=== PATIENT | female | born 1950 | race Caucasian/White ===

== ENCOUNTER 2025-08-28 12:56 | Outpatient (CLI) | payer MEDICARE, SELFPAY ==
--- OUTSIDE RECORDS SUMMARY | 2024-04-19 16:30 | XMS_ITS ---
Author Organization [facility] [place] ([address]) Address [address] [place] [address] Care Team Providers Care Administrative Assistant Data Entry Name Role Phone Kobi Garcia Primary Care Provider UnavailTang Costello Unavailable [phone] ZZ-Migration, Provider Unavailable Unavailab le REASON FOR VISIT [facility] Conversion Encounter Medications Medication SIG (Take, Route, Frequency, Duration) Notes Start Date End Date Status TIMOLOL MALEATE (EQV-TIMOPTIC) MALEATE 0.5% *Please review for potential replacement for e-prescription and drug interaction check* Active ZyrTEC Allergy 10 MG 1 tab(s) orally once a day Not-Taking Cosopt 2.23%-0.68% (2%-0.5% BASE) 1 GTT IN EACH EYE 2 TIMES A DAY *Please review and pick correct strength-formulat ion from Technorati options. If intended option is not shown, discontinue and re-order from Quick Search* Active Montelukast Sodium 10 MG 1 tab(s) orally once a day; Duration: 30 days Active Montelukast Sodium 10 MG 1 tab(s) orally once a day; Duration: 90 days Active Famotidine 20 MG 1 tab(s) orally 30 mins prior to SCIT; Duration: 30 days Active Ezetimibe 10 MG Acti ve Calcium 500+D 500 MG-10 MCG 1 TAB(S) CHEWED 2 TIMES A DAY *Please review and pick correct strength-formulat ion from Technorati options. If intended option is not shown, discontinue and re-order from Quick Search* Active EpiPen 2-Giovanny 0.3 MG/0.3ML as directed intramuscularly once; Duration: 30 days Active Cetirizine HCl 10 MG 1 tab(s) orally once a day; Duration: 30 days Active Raloxifene HCl 60 MG Active Metoprolol Succinate ER 25 MG Active Latanoprost 0.005 % Active Encounters Encounter Location Date Provider Diagnosis [address] [address] 04/19/2024 Provider AVRIL-Migration Localized swelling, mass and lump, head R22.0 Assessments Encounter Date Diagnosis (ICD Code) Assessment Notes Treatment Notes Treatment Clinical Notes Section Notes 04/19/2024 Localized swelling, mass and lump, head (ICD-10 - R22.0) Plan Of Treatment Medication Medication Name Sig Start Date Stop Date Notes TIMOLOL MALEATE (EQV-TIMOPTIC) MALEATE 0.5% *Please review f or potential replacement for e-prescription and drug interaction check* Montelukast Sodium 10 MG 1 tab(s) orally once a day; Duration: 90 days Famotidine 20 MG 1 tab(s) orally 30 m ins prior to SCIT; Duration: 30 days Ezetimibe 10 MG Calcium 500+D 500 MG-10 MCG 1 TAB(S) CHEWED 2 TIMES A DAY *Please review and pick correct strength-formulation from Technorati options. If intended option is not shown, discontinue and re-order from Quick Search* EpiPen 2-Giovanny 0.3 MG/0.3ML as directed intramuscularly once; Duration: 30 days Cetirizine HCl 10 MG 1 tab(s) orally onc e a day; Duration: 30 days Raloxifene HCl 60 MG Metoprolol Succinate ER 25 MG Latanoprost 0.005 % Progress Notes * Tera MORENOOB:1950 (74 yo F)Acc No.[id number]:04/19/2024 Patient: Lavonne VU Provider: Dianna Grubbs :1950 A ge:73 Y S ex:Female Date:04/19/2024 Address:[address] [place], [place] [id number] Pcp:Kobi Garcia Subjective: * Chief Complaints: * 1 . [facility] Conversion Encounter. * Medical History: * Medications: T aking Cosopt 2.23%-0.68% (2%-0.5% BASE) SOLUTION 1 GTT IN EACH EYE 2 TIMES A DAY , Notes to Pharmacist: *Please review and pick correct strength-formulation from Medispan options. If intended option is not shown, discontinue and re-order from Quick Search*, Taking Montelukast Sodium 10 MG Tablet 1 tab(s) orally once a day , Not-Taking/PRN ZyrTEC Allergy 10 MG Tablet 1 tab(s) orally once a day Objective: * Vitals: Assessment: * Assessment: 1. L ocalized swelling, mass and lump, head - R22.0 (Primary) Plan: * Treatment: 2. O thers Continue TIMOLOL MALEATE (EQV-TIMOPTIC) SOLUTION, MALEATE 0.5%, Notes to Pharmacist: *Please review for potential replacement for e-prescription and drug interaction check*; C ontinue Raloxifene HCl Tablet, 60 MG; C ontinue Metoprolol Succinate ER Tablet Extended Release 24 Hour, 25 MG;?Continue Latanoprost Solution, 0.005 %; C ontinue Ezetimibe Tablet, 10 MG; C ontinue Calcium 500+D TABLET, CHEWABLE, 500 MG-10 MCG, 1 TAB(S), CHEWED, 2 TIMES A DAY, Notes to Pharmacist: *Please review and pick correct strength-formulation from Medispan options. If intended option is not shown, discontinue and re-order from Quick Search*. * Billing Information: * Visit Code: * Procedure Codes: * Electronic signature of Sera MACKENZIE-Migration on 08/28/2025 at 01:23 PM CDT Sign off status: Pending * Provider: Dianna tomlinson Migration Date: 0 04/19/2024 Generated for Simón smith/Arie/Joseph on: 01:23 PM CDT
--- OUTSIDE RECORDS SUMMARY | 2024-07-28 12:30 | XMS_ITS ---
Author Organization [facility] [place] ([address]) Address [address] [place] [address] Care Team Providers Care Engineer Station Mainline Name Role Phone Kobi Garcia Primary Care Provider Tang Greenwood [phone] REASON FOR VISIT [facility] follow-up Encounters Encounter Location Date Provider Diagnosis [facility] [place] [address] [place] [address] 07/28/2024 Tang Johnson Plan Of Treatment No Information Progress Notes * Tera MORENOOB:1950 (74 yo F)Acc No.[id number]:07/28/2024 Progress Notes Patient: Lavonne VU Provider: Sriram Johnson PA-C :1950 A ge:73 Y S ex:Female Date:07/28/2024 [address] [facility] Pcp:Kobi Garcia Subjective: * Chief Complaints: * 1 . ARC follow-up. * Medical History: Objective: * Vitals: Assessment: Plan: * Treatment: * Billing Information: * Visit Code: * Procedure Codes: * Electronic signature of Raad Johnson PA-C on 08/28/2025 at 01:23 PM CDT Sign off status: Pending * Provider: Sriram Johnson PA-C Date: 0 07/28/2024 Generated for Printi ng/Faxing/eTransmitting on: 1 01:23 PM CDT
--- OUTSIDE RECORDS SUMMARY | 2025-01-27 12:30 | XMS_ITS ---
Author Organization [facility] [place] ([address]) Address [address] [place] [address] Care Team Providers Care Senior Sales Operations Manager Name Role Phone Kobi Garcia Primary Care Provider Tang Greenwood [phone] REASON FOR VISIT [facility] follow-up Encounters Encounter Location Date Provider Diagnosis [facility] [place] [address] [place] [address] 01/27/2025 Tang Johnson Plan Of Treatment No Information Progress Notes * Tera MORENOOB:1950 (74 yo F)Acc No.[id number]:01/27/2025 Progress Notes Patient: Lavonne VU Provider: Sriram Johnson PA-C :1950 A ge:74 Y S ex:Female Date:01/27/2025 [address] [facility] Pcp:Kobi Garcia Subjective: * Chief Complaints: * 1 . ARC follow-up. * Medical History: Objective: * Vitals: Assessment: Plan: * Treatment: * Billing Information: * Visit Code: * Procedure Codes: * Electronic signature of Raad Johnson PA-C on 08/28/2025 at 01:22 PM CDT Sign off status: Pending * Provider: Sriram Johnson PA-C Date: 0 01/27/2025 Generated for Printi ng/Faxing/eTransmitting on: 1 01:22 PM CDT
--- OUTSIDE RECORDS SUMMARY | 2025-08-28 13:23 | XMS_ITS | Clinical Summary ---
Author Organization [facility] Address [address] [place] [place] [address] Care Team Providers Care Varnish Maker Name Role Phone Kobi Garcia MD Primary Care Provider Source Comments [facility],non-owned Affiliates and Associated Physician Practices is amultiple site organization consisting of ambulatory clinics and hospital sitesin [place], [place], [place] and [place]. This disclosure is being madepursuant to the Care Everywhere program and may not contain all information available regarding this patient. Last updated 18.[facility] Allergies No known active allergies Medications * Be aware that medications may not be up to date on this document. Alwaysverify current medications with the patient. raloxifene (EVISTA) 60 MG tablet Take 60 mg by mouth once daily Active METOPROLOL SUCCINATE ER PO Acti ve latanoprost (XALATAN) 0.005 % ophthalmic solution 1 drop at bedtime Active Active Problems No known active problems Immunizations Immunization Administration Dates Next Due INFLUENZA VACCINE, HIGH-DOSE , QUADR. (FLUZONE HIGH-DOSE QUADRIVALENT; 65Y+), 0.7 ML (HD-IIV4) 09/14/2020 Social History Tobacco Use Types Packs/Day Years Used Date Smoking Tobacco: Former Smokeless Tobacco: Never Comments No Sex and Gender Information Value Date Recorded Sex Assigned at Female 02/16/2024 10:06 AM CDT Legal Sex Female 9:12 AM CDT Gender Identity Female 02/16/2024 10:06 AM CDT Sexual Orientation Not on file Last Filed Vital Signs Vital Sign Reading Time Taken Comments Blood Pressure 122/76 04/05/2018 2:17 PM CDT Pulse 80 04/05/2018 2:17 PM CDT Temperature 36.5 C (97.7 F) 04/05/2018 2:17 PM CDT Respiratory Rate 16 04/05/2018 2:17 PM CDT Oxygen Saturation 98% 04/05/2018 2:17 PM CDT Inhaled Oxygen Concentration - - Weight 65.8 kg (145 lb) 04/05/2018 2:17 PM CDT Height 170.2 cm (5' 7) 04/05/2018 2:17 PM CDT Body Mass Index 22.71 04/05/2018 2:17 PM CDT Plan of Treatment Health Maintenance Due Date Last Done Comments BONE DENSITY TESTING 1950 COLOGUARD (AGES 45-75) - COLON CA SCREENING 1950 COLON MONITORING 1950 COLONOSCOPY - COLON CA SCREENING 1950 CT COLONOGRAPHY - COLON CA SCREENING 1950 Colorectal Cancer Screening 1950 FIT - COLON CA SCREENING 1950 FLEX SIG - COLON CA SCREENING 1950 LIPID TESTING 1950 MAMMOGRAM 1950 HEPATITIS C SCREENING 08/26/1970 DTAP/TDAP/TD VACCINES (1 - Tdap) 1971 PNEUMOCOCCAL VACCINE 50+ (1 of 1 - PCV) 2002 ZOSTER VACCINE (1 of 2) 2002 DEPRESSION SCREENING 11/05/2024 COVID-19 VACCINE (1 - season) 2025 INFLUENZA VACCINE (#1) 2025 , 09/14/2020, 09/29/2019, Additional history exists Respiratory Syncytial Virus (RSV) Vaccine Pt: or over 60 yrs (1 - 1-dose 75+ series) 2027 HEPATITIS B VACCINE Aged Out No longe r eligible based on patient's age to complete this topic HIB VACCINE Aged Out No longer eligi ble based on patient's age to complete this topic HPV VACCINE Aged Out No longer eligi ble based on patient's age to complete this topic MENINGOCOCCAL (Group B) VACCINE SHARED DECISION-MAKING Aged Out No longer eligible based on patient's age to complete this topic MENINGOCOCCAL GROUPS A/C/Y/W VACCINE Aged Out No longer eligible based on patient's age to complete this topic Insurance MEDICARE MEDICARE [facility] Care Teams Varnish Maker Relationship Specialty Start Date End Date Kobi Garcia MD [address] [facility] [address] [place] [address] PCP - General Internal Medicine 01/16/17
--- OUTSIDE RECORDS SUMMARY | 2025-08-28 13:23 | XMS_ITS | Clinical Summary ---
Author Organization [facility] Address [address] [place] [address] Care Team Providers Care Targeteer Name Role Phone Kobi Garcia MD Primary Care Provider Allergies No known active allergies Medications raloxifene (EVISTA) 60 mg tablet 06/06/20 21 Active metoprolol XL (TOPROL-XL) 25 mg extended release tablet 06/06/20 21 Active ezetimibe (ZETIA) 10 mg tablet Take 1 tablet (10 mg total) by mouth daily 12/08/19 22 Active amoxicillin 500 mg tablet/capsule Take by mouth 2 (two) times a day Active timolol (TIMOPTIC) 0.5 % ophthalmic solution INSTILL 1 DROP INTO BOTH EYES BID Active ergocalciferol (VITAMIN D) 50,000 unit capsule Take 1 capsule(s) every week by oral route for 30 days. Active cetirizine (ZyrTEC) 10 mg tabletIndicati ons:Chronic urticaria,Isabel oedema, initial encounter Take 2 tablets (20 mg total) by mouth daily 60 tablet 03/13/20 25 026 Active famotidine (PEPCID) 20 mg tabletIndicati ons:Chronic urticaria,Isabel oedema, initial encounter Take 1 tablet (20 mg total) by mouth 2 (two) times a day 60 tablet 03/13/20 25 026 Active EPINEPHrine 0.3 mg/0.3 mL auto-injection syringeIndicat ions:Anaphylax is Inject 0.3 mL (0.3 mg total) into the muscle as instructed as needed for anaphylaxis Call 911 after use. 2 each 1 03/20/20 25 026 Active dorzolamide-ti moloL (COSOPT) 22.3-6.8 mg/mL ophthalmic solutionIndica tions:Primary open angle glaucoma (POAG) of both eyes, mild stage INSTILL 1 DROP INTO EACH EYE TWICE DAILY 20 mL 3 04/15/20 25 Active latanoprost (XALATAN) 0.005 % ophthalmic solution INSTILL 1 DROP INTO EACH EYE NIGHTLY 7.5 mL 1 08/28/20 25 Active latanoprost (XALATAN) 0.005 % ophthalmic solution INSTILL 1 DROP INTO EACH EYE NIGHTLY 7.5 mL 3 11/11/19 25 025 Discontinued Active Problems Problem Noted Date Diagnosed Date Chronic urticaria 03/18/2025 Primary open angle glaucoma (POAG) of both eyes, mild stage 08/16/2021 Overview (03/29/2023): Family history: + mother Tmax: Unclear - thinks may have been 20 or 21 CCT: 540s Treatment course: Hx SLT OS 2019 @ [facility] Likely normotensive pattern Assessment & Plan (04/09/2025 1:42 PM CDT): IOP at goal No need for SLT at this time Follow 4-6 months with HVF 24-2 OU, SLT for IOP >18 Assessment & Plan (10/24/2024 1:57 PM GYN PHYSICIAN): IOP at goal No need for SLT at this time Follow 4-6 months with OCT, SLT for IOP >18 Assessment & Plan (07/24/2024 3:29 PM CDT): Intraocular pressure (IOP) sl elevated today Milian visual field (HVF) 10-2 with stable superior alt defect compared to 2022 Left eye (OS) 10-2 normal CPM Consider phaco-MIGS vs SLT if intraocular pressure (IOP) remains high Assessment & Plan (03/21/2024 2:36 PM CDT): Today HVF 24-2 stable with superior arcuate defect involving fixation, but with reduced foveal threshold IOP continues to be stable mid teens on Cosopt and latanoprost OU Will continue with close follow up and monitoring. IOP goal likely low teens but given stability of field and IOPs, can continue at this IOP for now in absence of progression. Return 4 months HVF 10-2 OU (alternating 24-2 and 10-2.) then dilate Assessment & Plan (12/06/2023 2:36 PM GYN PHYSICIAN): Most recent HVF 10-2 OD (08/02/2023) stable with superior arcuate defect involving fixation, but with reduced foveal threshold from prior OCT today with stable severe polar thinning OU. IOP continues to be stable around 15 on Cosopt and latanoprost OU Will continue with close follow up and monitoring. IOP goal likely low teens but given stability of field and IOPs, can continue at this IOP for now in absence of progression. Return 3 months HVF 24-2 OU (alternating 24-2 and 10-2.) Assessment & Plan (08/02/2023 3:17 PM CDT): IOP continues to be stable on Cosopt and latanoprost OU HVF 10-2 OD stable with superior arcuate defect involving fixation, but with reduced foveal threshold from prior Will continue with close follow up and monitoring. IOP goal likely low teens but given stability of field and IOPs, can continue at this IOP for now Return 3 months OCT RNFL (next dil 01/26) Assessment & Plan (03/29/2023 1:34 PM CDT): IOP improved after switching timolol to Cosopt Continue Cosopt and latanoprost OU Return: 4 months for repeat HVF 10-2 right eye (second baseline) Assessment & Plan (02/01/2023 2:12 PM CDT): POAG vs normal tension glaucoma (unclear Tmax- patient thinks may have been 20- 21, suspicious for NTG given derringer scotoma). Has previously been on cosopt but stopped- concern for allergy (hives). Has since been diagnosed with chronic urticaria and thinks cosopt was unrelated. Today IOP 16 and 16.5 Baseline HVF 10-2 OU today- derringer scotoma OD, nonspecific misses OS Goal IOP likely low teens given severity of cupping and center involving superior arcuate OD Discussed with patient SLT OD vs Cosopt, and she elects to restart cosopt Drops: Cosopt BID OU Latanoprost QHS OU RTC 6--8 weeks IOP check, if IOP remains mid teens could consider SLT OD Assessment & Plan (11/30/2022 2:14 PM GYN PHYSICIAN): Referred for evaluation of glaucoma OU - Glaucoma diagnosed ~15 years ago - Family hx: +Mother, diagnosed late and did not have significant treatment - TMax: unknown - Prior tx: self-reported intolerance to brimonidine; dorzolamide listed on chart as allergy but patient reports this was not the case Hx of SLT OS 2019 at [facility] Summary of today's findings: - visual acuity (VA): 20/20 OD, 20/20 OS - intraocular pressure (IOP): 16 / 16 (on timolol 2/2, latanoprost 11/05) - CCTs: 540s - Gonio: Gr 3 with some lens rise OU Assessment / Plan For now will continue chris 2/2 and xal 11/05. Will have patient come back for HVF 10-2 OU baseline. IOP OK for now at 16 OU. RTC 2 months IOP check/DFE OU and HVF 10-2 OU. Can consider possible phaco/MIGS versus SLT afterwards. Assessment & Plan (09/25/2022 8:43 PM GYN PHYSICIAN): Above goal 18/20 on latan (1,1), timolol (1,1) although did not take timolol this AM Discussed options including SLT vs observation with repeat HVF 24-2 OU in 2 mo. Pt elected to observe for now PLAN: - HVF 24-2 at next [facility] glaucoma visit - Consider Phaco/MIGS in future Assessment & Plan (08/29/2022 7:17 AM CDT): Had been stable on latan (1,1), timolol (1,1) previously OCT RNFL today overall stable OU HVF 24-2 GENESIS Fast: new paracentral scotoma OD, full OS Prior mendoza unreliable, so unclear if this is truly a new finding versus already existing IOP slightly above goal 17/18 today Discussed options includuing observation with repeat HVF 24-2 OU in 3 mo versus SLT OD with repeat field in 3 months. Pt elected to pursue SLT OD. Return: - Next available SLT OD - 3 months HVF 24-2 GENESIS FAST both eyes, IOP check - Consider Phaco/MIGS in future Assessment & Plan (02/17/2022 1:34 PM CDT): POAG both eyes with mild field loss, but advanced cupping Intolerance to brimonidine Family history + mother Target intraocular pressure (IOP) mid -teens OU Prior OCT with significant polar thinning Presents today for Milian visual field (HVF) 24-2 os due to poor reliability on prior study Milian visual field (HVF) 24-2: 02/17/22 Left eye - still with unreliable fixation loss but was looking straight ahead per rail technician, without FN/FP, full otherwise Plan: - since iop at goal, continue hcris 11/05, latan 11/05 - visual field testing appears to be full, although high FLs - RTC in 6 mo for OCT RNFL/GCC and Milian visual field (HVF) 24-24 GENESIS FAST - consider SLT both eyes (OU) if iop creeps up Assessment & Plan (11/25/2021 3:00 PM GYN PHYSICIAN): POAG both eyes with mild field loss, but advanced cupping intolerance to brimonidine Family history + mother Presents for intraocular pressure (IOP) check after stopping cosopt IOP today 10/17 on 2 classes Prior Milian visual field (HVF) normal both eyes (OU), but left eye (OS) limited by reliability Prior OCT with significant polar thinning At this time, goal IOP mid-teens RTC February 2022 as scheduled for repeat Milian visual field (HVF) left eye (OS) and DFE both eyes (OU) Assessment & Plan (08/16/2021 4:41 PM CDT): POAG OU mild stage Seen by outside provider Concern for progressive glaucoma - intolerance to brimonidine On 3 classes IOP today 15/15 HVF today normal OCT with polar thinning At this time, goal IOP mid-teens Mother with glaucoma, unable to stage given dementia Plan to monitor Follow 6 months, sooner for concerns Age-related nuclear cataract of both eyes 2020 Assessment & Plan (04/09/2025 1:44 PM CDT): BAT is not significant, pt not interested in surgery at this time Assessment & Plan (10/24/2024 1:56 PM GYN PHYSICIAN): BAT is not significant, hold on intervention Assessment & Plan (07/24/2024 3:30 PM CDT): Endorses significant glare with driving. Rec Phaco-MIGS OU F/u in 3 mo for BAT test Assessment & Plan (12/06/2023 2:37 PM GYN PHYSICIAN): Doing well with some symptoms but patient not ready for surgery. CTM Assessment & Plan (08/16/2021 4:42 PM CDT): Doing well with no new concerns Encounters Date Type Department Care Team Description 08/10/2025 10:20 AM CDT Clinical Support [facility] [address] [place] [address] [place] [phone] Chronic urticaria (Primary Dx) 08/10/2025 Telephone [facility] [address] [place] [phone] Polina Feng, RN Xolair appt 07/13/2025 10:00 AM CDT Clinical Support [facility] [address] [place] [phone] Chronic urticaria (Primary Dx) 06/15/2025 10:10 AM CDT Clinical Support [facility] [address] [place] [address] [place] [address] Chronic urticaria (Primary Dx) 06/15/2025 Telephone [facility] All[facility]ology [address] [place] [address] [address] [place] [phone] Arabella Thompson RN 06/12/2025 10:00 AM CDT Office Visit [facility] Medicine Allergy [facility] Immunology [address] [facility] [address] [place] [phone] Gerry De Santiago MD PhD Chronic urticaria (Primary Dx); Angioedema, subsequent encounter from Last 3 Months Surgical History Surgery Date Site/Laterality Comments TUBAL LIGATION 11/05/1979 - 11/04/1980 Bilateral Medical History Medical History Date Comments Glaucoma Arthritis Family History Medical History Relation Name Comments Hypertension Father Arthritis Mother COPD Mother Glaucoma Mother Relation Name Status Comments Father Mother Social History Tobacco Use Types Packs/Day Years Used Date Smoking Tobacco: Former Cigarettes Tobacco Cessation:Counseling Given: Not Answered AUDIT-C Answer Date Recorded Q1: How often do you have a drink containing alc ohol? Monthly or less 03/13/2025 Q2: How many drinks containi ng alcohol do you have on a typical day when you are drinking? 1 or 2 03/13/2025 Q3: How often do you have si x or more drinks on one occasion? Never 03/13/2025 Comments No Sex and Gender Information Value Date Recorded Sex Assigned at Not on file Legal Sex Female 9:56 AM CDT Gender Identity Female 02/16/2024 9:49 AM CDT Sexual Orientation Not on file Obstetrics History Last Filed Vital Signs Vital Sign Reading Time Taken Comments Blood Pressure 139/90 06/12/2025 9:56 AM CDT Pulse 65 06/12/2025 9:56 AM CDT Temperature 36.7 C (98.1 F) 06/12/2025 9:56 AM CDT Respiratory Rate 18 03/13/2025 9:28 AM CDT Oxygen Saturation 97% 06/12/2025 9:56 AM CDT Inhaled Oxygen Concentration - - Weight 70.3 kg (155 lb) 06/12/2025 9:56 AM CDT Height 170.2 cm (5' 7) 06/12/2025 9:56 AM CDT Body Mass Index 24.28 06/12/2025 9:56 AM CDT Plan of Treatment Health Maintenance Due Date Last Done Comments Breast Cancer Screening-Mammogram 1950 Colon Cancer Screening-Colonoscopy 1950 Depression Screening 1950 Fall Risk Assessment 1950 Hepatitis C Screening 1950 Hepatitis B Screening 1970 Well Visit 65+ 2017 DTaP/Tdap/Td Vaccine (2 - Tdap) 05/05/2023 3 Covid-19 Vaccine (3 - 2024-2 6 season) 2025 01/03/2021, 12/06/2020 Influenza Vaccine (#1) 2025 , 09/14/2020, 09/29/2019, Additional history exists Osteoporosis Screening-Bone Density Scan 02/20/2026 02/21/2024 Pneumococcal vaccine 65+ Completed 09/29/2019, 01/2018 Zoster Vaccine Completed 06/19/2025, 03/06/2025 Insurance MEDICARE [employer] SENIOR SUPPLEMENT [employer] SENIOR SUPPLEMENT MEDICARE Care Teams Targeteer Relationship Specialty Start Date End Date Kobi Garcia MD PCP - General Internal Medicine 08/12/21
--- OUTSIDE RECORDS SUMMARY | 2025-08-28 13:23 | XMS_ITS | Patient Health Record ---
Author Organization [facility] [place] ([id number]) Address [address] [place] [address] Care Team Providers Care Medical Recruiter Name Role Phone Kobi Garcia Primary Care Provider Tang Greenwood Unavailable [phone] Allergies No Known Allergies Reason For Referral No Information Medications Medication SIG (Take, Route, Frequency, Duration) Notes Start Date End Date Status Calcium 500+D 500 MG-10 MCG 1 TAB(S) CHEWED 2 TIMES A DAY *Please review and pick correct strength-formulat ion from [employer] options. If intended option is not shown, discontinue and re-order from Quick Search* Active RALOXIFENE 60 mg Act shanna Cetirizine HCl 10 MG 1 tab(s) orally once a day; Duration: 30 days Active LATANOPROST OPHTHALMIC 0.005% Active Raloxifene HCl 60 MG Active METOPROLOL SUCCINATE ER 25 mg Active Metoprolol Succinate ER 25 MG Active CALCIUM 500+D 500 mg-10 mcg 1 tab(s) chewed 2 times a day Active Latanoprost 0.005 % Active EZETIMIBE 10 mg Acti ve Ezetimibe 10 MG Acti ve CETIRIZINE 10 mg 1 tab(s) orally once a day; Duration: 30 days Active EPIPEN 2-GIOVANNY 0.3 mg as directed intramuscularly once; Duration: 30 days Active FAMOTIDINE 20 mg 1 tab(s) orally 30 mins prior to SCIT; Duration: 30 days Active COSOPT 2.23%-0.68% (2%-0.5% base) 1 gtt in each eye 2 times a day Not-Taking MONTELUKAST 10 mg 1 tab(s) orally once a day; Duration: 30 days Patient needs appointment for any other refills Not-Taking EpiPen 2-Giovanny 0.3 mg as directed intramuscularly once; Duration: 30 days Active Famotidine 20 mg 1 tab(s) orally 30 mins prior to SCIT; Duration: 30 days Not-Taking MONTELUKAST 10 mg 1 tab(s) orally once a day; Duration: 90 days Not-Taking ZYRTEC 10 mg 1 tab(s) orally once a day Not-Taking ZyrTEC Allergy 10 MG 1 tab(s) orally once a day Not-Taking Montelukast Sodium 10 MG 1 tab(s) orally once a day; Duration: 30 days Not-Taking TIMOLOL MALEATE (EQV-TIMOPTIC) maleate 0.5% Active Montelukast Sodium 10 MG 1 tab(s) orally once a day; Duration: 90 days Active Montelukast Sodium 10 MG 1 tablet Orally Once a day; Duration: 90 days 08/04/2024 Active CeleBREX 100 MG 1 capsule with food Orally Once a day Active Cosopt 2.23%-0.68% (2%-0.5% BASE) 1 GTT IN EACH EYE 2 TIMES A DAY *Please review and pick correct strength-formulat ion from [employer] options. If intended option is not shown, discontinue and re-order from Quick Search* Active Immunizations Vaccine Route Administration Date Status Comme nts FluZone Quadrivalent Unknown 08/25/2021 Administered Po rtal Information COVID-19 (Moderna) Unknown 03/31/2022 Administered Social History Tobacco Use: Social History Observation Description Date Details (start date - stop date) Former Smoker NA - NA Smoking Smart Form: Question Answer Notes Are you a: former smoker How long it has been since you last smoked? > 10 years Problems Problem Type SNOMED Code ICD Code Onset Dates Problem Status W/U Status Risk Notes Problem Allergic rhinitis caused by pollen (disorder) (82778582) Allergic rhinitis due to pollen (J30.1) Active confirmed Problem Allergic rhinitis (99552062) Other allergic rhinitis (J30.89) Active confirmed Problem Chronic rhinitis (92287103) Chronic rhinitis (J31.0) Active confirmed Problem Hypertrophy of nasal turbinates (22188302) Hypertrophy of nasal turbinates (J34.3) Active confirmed Problem Swelling of head (184104819) Localized swelling, mass and lump, head (R22.0) Active confirmed Problem Allergic rhinitis caused by animal hair and dander (438556517602452) Allergic rhinitis due to animal (cat) (dog) hair and dander (J30.81) Active confirmed Problem Idiopathic urticaria (22323956) Idiopathic urticaria (L50.1) Active confirmed Problem Essential hypertensi on (25010263) Essential (primary) hypertension (I10) Active confirmed Problem Pure hypercholesterolemia (200977844) Pure hypercholester olemia, unspecified (E78.00) Active confirmed Plan Of Treatment Pending Test Test Name Order Date C1 INHIBITOR, FUNCTIONAL 02/14/2022 C1 INHIBITOR, PROTEIN 02/14/2022 Insurance Providers Payer Name Payer Address Payer Phone Subscriber Number Group Number Insured Name Patient Relationship to Insured Coverage Start Date Coverage End Date [employer] (Medicare) Attention Claims [address] [place] [address] [id number] Lavonne Chang Self - patient is the insured [email or web address] [address] [address] [place] [address] [id number] Lavonne Chang Self - patient is the insured Medical (General) History Medical History History ICD Code Pure hypercholesterolemia, unspecified E 78.00 Essential (primary) hypertension I10 Other specified disorders of bone densit y and structure, unspecified site M85.80 Idiopathic urticaria L50.1 Localized swelling, mass and lump, head R22.0 Surgical History Surgery Date(Month/Year) Tubaligation 12/21/1979
== END 2025-08-28 12:57 | disposition home or self-care (01) ==
PROVIDERS: PCP Internal Medicine; Visit Provider Otolaryngology
DX: H90.3 Sensorineural hearing loss, bilateral (principal)
CPT/HCPCS: 92557; 92567